=== PATIENT | male | born 1955 | race Caucasian/White ===

== ENCOUNTER 2016-10-18 14:07 | Emergency (ER) | payer OTHER ==
[2016-10-18] MEDS ORDERED: LIDOCAINE HCL 1% MPF SOL ONE (14:31)
[2016-10-18 15:13] VITALS: RESP 16; TEMP 96
[2016-10-18] MEDS ORDERED: LIDOCAINE HCL 1% MPF SOL INFIL ONE (15:16)
[2016-10-18 15:40] VITALS: BP 194/97; PULSE 91; O2SAT 97
== END 2016-10-18 15:30 | disposition home or self-care (01) ==
LOC: ED 14:07
DX: S61.411A Laceration without foreign body of right hand, initial encounter (principal); W26.8XXA Contact with other sharp object(s), not elsewhere classified, initial encounter
CPT/HCPCS: 12001; 99284; J2001